=== PATIENT | female | born 1960 | race Native Hawaiian/Other Pacific Islander ===

== ENCOUNTER 2016-10-09 08:39 | Outpatient (CLI) | payer OTHER ==
[~2016-10-09 08:39] MED LIST: AMBIEN5 MG PO; BISO5TAB2 PO; METF500T PO; OMEP40CA PO; PENI500T14 PO; PEPCID20 MG PO; TEMA15CA19 PO
== END 2016-10-09 10:00 | disposition home or self-care (01) ==
LOC: MAMMO 08:39
DX: Z12.31 Encounter for screening mammogram for malignant neoplasm of breast (principal)
CPT/HCPCS: G0202-TC

== ENCOUNTER 2019-10-27 08:26 | Outpatient (CLI) | payer OTHER ==
[~2019-10-27 08:26] MED LIST changes: +COZAAR25 MG PO; +OMEPRAZOLE20 M1 PO; +ZANTAC300 MG PO
== END 2019-10-27 19:03 | disposition home or self-care (01) ==
LOC: MAMMO 08:26
DX: Z12.31 Encounter for screening mammogram for malignant neoplasm of breast (principal)

== ENCOUNTER 2019-11-11 14:11 | Outpatient (CLI) | payer OTHER | END 2019-11-11 19:10 | disposition home or self-care (01) | LOC: MRI 14:11 | DX: M47.22 Other spondylosis with radiculopathy, cervical region (principal) ==

== ENCOUNTER 2020-11-25 15:08 | Outpatient (CLI) | payer OTHER | END 2020-11-25 19:58 | disposition home or self-care (01) | LOC: MAMMO 15:08 | PROVIDERS: ATTEND Specialist | DX: Z12.31 Encounter for screening mammogram for malignant neoplasm of breast (principal) ==

== ENCOUNTER 2021-11-03 10:43 | Outpatient (CLI) | payer OTHER | END 2021-11-03 21:29 | disposition home or self-care (01) | LOC: MAMMO 10:43 | PROVIDERS: ATTEND Internal Medicine | DX: Z12.31 Encounter for screening mammogram for malignant neoplasm of breast (principal) ==